=== PATIENT | female | born 1975 | race African-American/Black ===

== ENCOUNTER 2020-07-31 01:46 | Emergency (ER) | payer OTHER ==
[~2020-07-31] VITALS: Ht 157.5 cm; Wt 31.8 kg
[2020-07-31 02:14] LABS: ABSOLUTE NEUTROPHILS 4.6 thou/uL (1.4-8.2); BASOPHILS 0.5 % (0.0-2.0); EOSINOPHILS 0.1 % (0.0-3.0); HEMATOCRIT 38.2 % (37.0-47.0); HEMOGLOBIN 12.4 gm/dL (12.0-15.0); LYMPHOCYTES 8.5 % (24.0-44.0); MCH 30.7 pg (26.0-34.0); MCHC 32.5 g/dL (28.0-37.0); MCV 94.4 fL (80.0-100.0); MONOCYTES 6.7 % (1.0-8.0); PLATELET COUNT 175 thou/uL (150-400); POLYS 84.2 % (36.0-66.0); RBC 4.05 mil/uL (4.20-5.00); RDW 15.2 % (10.5-14.5); WBC 5.4 thou/uL (4.0-11.0)
[2020-07-31 02:54] LABS: CALCIUM 10.7 mg/dL (8.5-10.1); CREATININE 9.7 mg/dL (0.6-1.0); POTASSIUM 5.5 mmol/L (3.5-5.1)
[2020-07-31 03:01] LABS: TOTAL BILIRUBIN 0.4 mg/dL (0.2-1.0); TOTAL PROTEIN 9.5 g/dL (6.4-8.2)
[2020-07-31] MEDS ORDERED: ZOFRAN ODT4 MG PO (03:06)
[2020-07-31 03:17] VITALS: BP 153/73
== END 2020-07-31 03:23 | disposition home or self-care (01) ==
LOC: ER 01:46
PROVIDERS: Emergency Medicine
DX: R11.2 Nausea with vomiting, unspecified (principal); R10.10 Upper abdominal pain, unspecified

== ENCOUNTER 2021-08-13 15:31 | Emergency (ER) | payer OTHER ==
[~2021-08-13] VITALS: Ht 157.5 cm; Wt 69.7 kg
[~2021-08-13 15:31] MED LIST: ZOFRAN ODT4 MG PO
[2021-08-13] MEDS ORDERED: SERTRALINE HCL100 MG PO (16:18)
[2021-08-13] MEDS ORDERED: CALCIUM ACETAT667 MG PO (16:19)
[2021-08-13 16:41] LABS: ABSOLUTE NEUTROPHILS 2.5 thou/uL (1.4-8.2); BASOPHILS 1.4 % (0.0-2.0); EOSINOPHILS 3.6 % (0.0-3.0); HEMATOCRIT 32.3 % (37.0-47.0); HEMOGLOBIN 10.7 gm/dL (12.0-15.0); LYMPHOCYTES 18.7 % (24.0-44.0); MCH 31.5 pg (26.0-34.0); MCHC 33.1 g/dL (28.0-37.0); MCV 95.3 fL (80.0-100.0); PLATELET COUNT 148 thou/uL (150-400); POLYS 64.3 % (36.0-66.0); RBC 3.39 mil/uL (4.20-5.00); RDW 14.6 % (10.5-14.5); WBC 3.9 thou/uL (4.0-11.0)
[2021-08-13 16:55] LABS: POTASSIUM 3.9 mmol/L (3.5-5.1)
[2021-08-13 19:06] VITALS: BP 126/76
--- NOTE | 2021-08-14 07:06 | EKG ---
[facility] [employer] [place] [address] ELECTROCARDIOGRAM REPORT Name: BREE ADAMS [facility] #: [facility]andraAlexandra#: [id number] Admission: 08/13/21 Attend Phys: Discharge: 08/13/21 Date of : 71 Report #: [id number] [facility] ED Test Date: 2021-08-13 Test Time: 15:43:21 Pat Name: BREE ADAMS Department: Room: Gender: F Chief Sustainability Officer: cristiana : 1975 Requested By: Paramjit Bryant Order Number: [id number] MD: Philip Segura Measurements Intervals [place] Rate: 59 P: -10 WA: 115 QRS: -30 QRSD: 99 T: 32 QT: 436 QTc: 432 Interpretive Statements Pacemaker spikes or artifacts Sinus rhythm Borderline short [place] interval Left axis deviation Abnormal R-wave progression, early transition Baseline wander in lead(s) V3 No previous ECG available for comparison Electronically Signed On 08-14-2021 7:06:16 CODING QUALITY ANALYST by Philip Segura [email or web address] <ELECTRONICALLY SIGNED> By: Philip Segura MD, [facility] 08/14/21 [id number] Philip Segura MD, FACC /EPI
== END 2021-08-13 19:12 | disposition home or self-care (01) ==
LOC: ER 15:31
PROVIDERS: Student in an Organized Health Care Education/Training Program
DX: R07.89 Other chest pain (principal); R06.02 Shortness of breath; R11.0 Nausea; I10 Essential (primary) hypertension; Z88.8 Allergy status to other drugs, medicaments and biological substances; Z99.2 Dependence on renal dialysis